=== PATIENT | female | born 1975 | race Caucasian/White ===

== ENCOUNTER 2023-06-10 13:51 | Emergency (ER) | payer BC ==
[~2023-06-10] VITALS: Ht 167.6 cm; Wt 131.5 kg
[2023-06-10 13:51] VITALS: BP_SYST 151; PULSE 82; RESP 18; TEMP 97.4; O2SAT 96
[2023-06-10] MEDS ORDERED: ACETAMINOPHEN 325 MG TABLET PO ONE (15:15)
[2023-06-10 16:58] LABS: BILIRUBIN,URINE NEGATIVE (NEGATIVE); CLARITY/URINE CLEAR (CLEAR); COLOR,URINE YELLOW (YELLOW); GLUCOSE,URINE NEGATIVE (NEGATIVE); KETONES,URINE NEGATIVE (NEGATIVE); LEUKOCYTE ESTERASE ,URINE NEGATIVE (NEGATIVE); NITRITE, URINE NEGATIVE (NEGATIVE); PROTEIN URINE NEGATIVE (NEGATIVE); UROBILINOGEN,URINE 0.2 (0.2-1.0)
[2023-06-10 17:01] LABS: BLOOD, URINE TRACE (NEGATIVE)
[2023-06-10] MEDS ORDERED: CYCL10TA24 PO (17:16)
[2023-06-10 17:21] LABS: RBC,URINE 0-3 /HPF (0-3); WBC,URINE 0-3 /HPF (0-3)
[2023-06-10 17:22] VITALS: BP_SYST 151; PULSE 82; RESP 18; TEMP 97.4; O2SAT 96
[2023-06-10 17:22] LABS: BACTERIA,URINE MODERATE /HPF (None Seen); COARSE GRANULAR CASTS,URINE 0-10 /LPF (None Seen); MUCUS,URINE 1+ /LPF (None Seen); URIC ACID CRYSTALS,URINE 0-10 /HPF (None Seen)
== END 2023-06-10 17:22 | disposition home or self-care (01) ==
LOC: SED 13:51
DX: M54.31 Sciatica, right side (principal); M19.071 Primary osteoarthritis, right ankle and foot; Z79.899 Other long term (current) drug therapy
CPT/HCPCS: 72100-TC; 81000; 81001; 81015; 81025; 87086; 93971; 99284